=== PATIENT | female | born 1980 | race Hispanic/Latino ===

== ENCOUNTER 2019-05-14 07:14 | Emergency (ER) | payer SELFPAY ==
[~2019-05-14 07:14] MED LIST: BACTRIM DS1 TAB PO; CEPHALEXIN500 M1 PO; FLEXERIL PO; PRE-NATAL PO; ULTRAM50 M1 PO
[2019-05-14] MEDS ORDERED: ZPAK PO (08:15)
[2019-05-14 08:34] VITALS: BP 141/78
== END 2019-05-14 08:39 | disposition home or self-care (01) | DRG 153 ==
LOC: ED 07:14
DX: J06.9 Acute upper respiratory infection, unspecified (principal)

== ENCOUNTER 2020-01-02 10:17 | Emergency (ER) | payer SELFPAY ==
[~2020-01-02] VITALS: Ht 157.5 cm; Wt 83.2 kg
[~2020-01-02 10:17] MED LIST changes: +ZPAK PO
[2020-01-02 12:21] VITALS: BP 170/88
== END 2020-01-02 12:26 | disposition home or self-care (01) | DRG 554 ==
LOC: ED 10:17
DX: M85.441 Solitary bone cyst, right hand (principal)

== ENCOUNTER 2020-06-02 17:38 | Emergency (ER) | payer SELFPAY ==
[~2020-06-02] VITALS: Ht 157.5 cm; Wt 85.0 kg
[2020-06-02] MEDS ORDERED: TESSALON PERLE100 MG PO (19:11)
[2020-06-02 19:40] VITALS: BP 124/82
== END 2020-06-02 19:40 | disposition home or self-care (01) | DRG 866 ==
LOC: ED 17:38
DX: B34.9 Viral infection, unspecified (principal); Z20.822 Contact with and (suspected) exposure to COVID-19

== ENCOUNTER 2021-05-08 23:58 | Emergency (ER) | payer SELFPAY ==
[~2021-05-08] VITALS: Ht 157.5 cm; Wt 83.0 kg
[~2021-05-08 23:58] MED LIST changes: +TESSALON PERLE100 MG PO
[2021-05-09] MEDS ORDERED: FLEXERIL5 M1 PO (03:23)
[2021-05-09] MEDS ORDERED: MEDDOSEPAK PO (03:23)
[2021-05-09] MEDS ORDERED: ULTRAM50 MG PO (03:23)
[2021-05-09 04:10] VITALS: BP 142/72
== END 2021-05-09 04:10 | disposition home or self-care (01) | DRG 563 ==
LOC: ED 23:58
DX: S29.012A Strain of muscle and tendon of back wall of thorax, initial encounter (principal); S16.1XXA Strain of muscle, fascia and tendon at neck level, initial encounter; M48.02 Spinal stenosis, cervical region; M54.12 Radiculopathy, cervical region; X58.XXXA Exposure to other specified factors, initial encounter

== ENCOUNTER 2023-10-21 10:49 | Emergency (ER) | payer SELFPAY ==
[~2023-10-21] VITALS: Ht 157.5 cm; Wt 88.0 kg
[~2023-10-21 10:49] MED LIST changes: +FLEXERIL5 M1 PO; +MEDDOSEPAK PO; +ULTRAM50 MG PO
[2023-10-21 10:59] VITALS: BP 144/90
[2023-10-21 11:00] VITALS: BP 134/80
[2023-10-21] MEDS ORDERED: CIPROFLOX/DEXAMETH.0.3%/0.1% 7.5 ML BTL AS ONE (11:15)
[2023-10-21] MEDS ORDERED: CIPROFLOXACIN/D1 SUS AD (11:16)
[2023-10-21 11:22] VITALS: BP 133/78
[2023-10-21] MEDS ORDERED: NAPROXEN500 MG PO (11:23)
[2023-10-21 11:41] VITALS: BP 123/72
[2023-10-21 12:00] VITALS: BP 124/79
== END 2023-10-21 12:18 | disposition home or self-care (01) | DRG 156 ==
LOC: ED 10:49
DX: H60.91 Unspecified otitis externa, right ear (principal)